=== PATIENT | male | born 1980 ===

== ENCOUNTER 2021-12-02 16:41 | Emergency (ER) | payer OTHER | END 2021-12-02 18:51 | disposition home or self-care (01) | LOC: MW.ED 16:41 | DX: S82.831A Other fracture of upper and lower end of right fibula, initial encounter for closed fracture (principal); S93.04XA Dislocation of right ankle joint, initial encounter; W14.XXXA Fall from tree, initial encounter | CPT/HCPCS: 29505; 73610-26-RT; 73610-RT; 73650-26-RT; 73650-RT; 99283 ==

== ENCOUNTER 2021-12-16 08:40 | Day surgery (SDC) | payer OTHER ==
[~2021-12-16 08:40] MED LIST: Lactated Ringers 1,000 ML IV SCH; ceFAZolin 2 GM in Premix Bag 1 BAG IV SCH
[2021-12-16] MEDS ORDERED: fentaNYL 100 MCG/2 ML SDV ONE (08:57)
[2021-12-16] MEDS ORDERED: Propofol 200 MG/20 ML SDV ONE ×2 (08:57→13:08)
[2021-12-16] MEDS ORDERED: Lidocaine 2% 5 ML SDV ONE ×2 (08:57→10:17)
[2021-12-16] MEDS ORDERED: Ondansetron 4 MG/2 ML SDV ONE (09:00)
[2021-12-16] MEDS ORDERED: Morphine 4 MG/ML VIAL IVPUSH PRN (09:07)
[2021-12-16] MEDS ORDERED: HYDROmorphone 1 MG/ML Syringe IVPUSH PRN (09:07)
[2021-12-16] MEDS ORDERED: Ondansetron 4 MG/2 ML SDV IVPUSH PRN (09:07)
[2021-12-16] MEDS ORDERED: fentaNYL 50 MCG/ML SDV IVPUSH PRN (09:07)
[2021-12-16] MEDS ORDERED: Metoclopramide 10 MG/2 ML SDV IVPUSH PRN (09:07)
[2021-12-16] MEDS ORDERED: Naloxone 0.4 MG/ML SDV IVPUSH PRN (09:07)
[2021-12-16] MEDS ORDERED: Albuterol 0.083% 2.5 MG/3 ML Neb Soln NEB PRN (09:07)
[2021-12-16] MEDS ORDERED: Bupivacaine 0.5% 30 ML SDV ONE (10:15)
[2021-12-16] MEDS ORDERED: Bupivacaine 0.25%/EPINEPHrine 1:200,000 10 ML SDV ONE ×2 (10:15→12:18)
[2021-12-16] MEDS ORDERED: Water For Injection, Sterile 20 ML ONE (12:02)
[2021-12-16] MEDS ORDERED: ceFAZolin 1 GM Vial ONE ×2 (12:02→12:18)
[2021-12-16] MEDS ORDERED: Glycopyrrolate 0.2 MG/ML SDV ONE (12:53)
[2021-12-16] MEDS ORDERED: ePHEDrine 50 MG/ML SDV ONE (13:33)
== END 2021-12-16 16:30 | disposition home or self-care (01) ==
LOC: MW.SDS 08:40
PROVIDERS: ATTEND Orthopaedic Surgery
DX: S82.851A Displaced trimalleolar fracture of right lower leg, initial encounter for closed fracture (principal); S93.431A Sprain of tibiofibular ligament of right ankle, initial encounter; F17.210 Nicotine dependence, cigarettes, uncomplicated; W19.XXXA Unspecified fall, initial encounter
CPT/HCPCS: 27822; 27829; C1713; C1769; J0131; J0690; J2704; J3010; J3490; J7120; 01480; 64450; 76942; J2405